=== PATIENT | female | born 1965 | race Caucasian/White ===

== ENCOUNTER 2017-09-20 17:30 | Emergency (ER) | payer MEDICARE, OTHER ==
--- NOTE | 2017-09-20 18:43 | XRAY Report ---
Procedure Date: 09/20/2017 Accession Number: [id number] / [id number] Procedure: XR - Knee 4 View LT CPT Code: FULL RESULT: EXAM: LEFT KNEE RADIOGRAPHY EXAM DATE: 09/20/2017 06:15 PM. CLINICAL HISTORY: Trauma. Pain. Unable to bear weight. COMPARISON: None. TECHNIQUE: 4 views. FINDINGS: Bones: Normal. No fractures or bone lesions. Joints: Normal. No effusion. No subluxations. Soft Tissues: Normal. No soft tissue swelling. IMPRESSION: Normal knee radiography. [facility]
[2017-09-20] MEDS ORDERED: HYDROcod/ACETAM 5/325 MG TABLET PO STA (18:56)
--- NOTE | 2017-09-20 19:00 | ED Physician Documentation ---
PD HPI LOWER EXT INJURY - Stated complaint Stated Complaint: GLF/LT KNEE POP - Chief complaint Chief Complaint: Ext Problem - History obtained from History obtained from: Patient - History of Present Illness PD HPI LOW EXT INJURY LOCATION: Left, Knee Where injury occurred: Home Timing - onset: Yesterday Timing - duration: Days (1) Timing - details: Abrupt onset Pain level max: 8 Pain level now: 7 Improved by: Rest, Ice, Immobilization Worsened by: Moving, Palpating Associated symptoms: No: Weakness, Numbness, Tingling, Swelling Contributing factors: No: Anticoagulated, Prior ortho surgery Similar symptoms before: Has not had sx before Recently seen: Not recently seen - Additional information Additional information: Patient is a 51-year-old female presents to the emergency department left knee pain. She states she was standing when she felt a pop in the posterior aspect of her knee and then she fell to the ground. This was yesterday and states the pain has steadily increased. Ambulated into the emergency department using a cane. Review of Systems Musculoskeletal: denies: Neck pain, Back pain Neurologic: denies: Focal weakness, Numbness PD PAST MEDICAL HISTORY - Past Medical History Past Medical History: Yes Respiratory: Asthma Endocrine/Autoimmune: HyPOthyroidism GI: Other Psych: Bipolar disorder Musculoskeletal: Fibromyalgia Other Past Medical History: IBS - Past Surgical History Past Surgical History: Yes General: Cholecystectomy, Appendectomy, Bowel surgery /[employer]HO[employer]: section, Hysterectomy - Present Medications Home Medications: Ambulatory Orders Medication Instructions Recorded Confirmed Estrogens, Conjugated [Premarin] 1.25 mg PO 09/20/17 Guanfacine HCl 1 mg PO 09/20/17 Haloperidol [Haldol] 0.5 mg PO BID 09/20/17 09/20/17 Hydrocodone/Acetaminophen 1 - 2 each PO Q6H PRN #14 tablet 09/20/17 [Hydrocodon-Acetaminophen 5-325] Lamotrigine [Lamotrigine ER] 200 mg PO BID 09/20/17 09/20/17 Levothyroxine Sodium [Synthroid] 50 mcg PO 09/20/17 Losartan [Cozaar] 50 mg PO DAILY 09/20/17 09/20/17 Pantoprazole [Protonix] 40 mg 09/20/17 diazePAM [Valium] 5 - 10 mg PO TID PRN 09/20/17 09/20/17 - Allergies Allergies/Adverse Reactions: Allergies Allergy/AdvReac Type Severity Reaction Status Date / Time aspirin Allergy Dizziness Verified 09/20/17 17:49 codeine Allergy Hallucinati Verified 09/20/17 18:35 ons hydromorphone [From Dilaudid] Allergy Respiratory Verified 09/20/17 18:35 iodine AdvReac Rash Verified 09/20/17 18:35 Latex, Natural Rubber AdvReac Rash Verified 09/20/17 18:35 - Social History Does the pt smoke?: No Smoking Status: Never smoker Does the pt drink ETOH?: No Does the pt have substance abuse?: No - Immunizations Immunizations are current?: Yes PD ED PE NORMAL - Vitals Vital signs reviewed: Yes - General General: Alert and oriented X 3, No acute distress - HEENT HEENT: Moist mucous membranes - Neck Neck: Supple, no meningeal sign - Derm Derm: Warm and dry - Extremities Extremities: Other (Left knee - ACL, PCL, MCL are intact. There may be slight laxity to the LCL. Also has diffuse tenderness about the knee. Mild swelling. No significant joint effusion. Neurovascularly intact) - Neuro Neuro: Alert and oriented X 3 - Psych Psych: Normal mood, Normal affect Results - Vitals Vitals: Vital Signs - 24 hr 09/20/17 09/20/17 17:47 19:31 Temperature 36.2 C L 36.6 C Heart Rate 59 L 77 Respiratory 16 18 Rate Blood Pressure 125/64 134/73 H O2 Saturation 97 97 Oxygen O2 Source Room air - Rads (name of study) L knee xray Radiology: Prelim report reviewed, EMP read contemporaneously, See rad report ( normal) PD MEDICAL DECISION MAKING - ED course Complexity details: reviewed results, re-evaluated patient, considered differential, d/w patient ED course: Patient is a 51-year-old female with a left knee sprain. Placed in an articulating knee brace and given crutches. Ambulating well with this. We will have her follow-up with her doctor for further evaluation and care. Patient counseled regarding signs and symptoms for which I believe and urgent re -evaluation would be necessary. Patient with good understanding of and agreement to plan and is comfortable going home at this time This document was made in part using voice recognition software. While efforts are made to proofread this document, sound alike and grammatical errors may occur. - Sepsis Event Vital Signs: Vital Signs - 24 hr 09/20/17 09/20/17 17:47 19:31 Temperature 36.2 C L 36.6 C Heart Rate 59 L 77 Respiratory 16 18 Rate Blood Pressure 125/64 134/73 H O2 Saturation 97 97 Oxygen O2 Source Room air Departure - Departure Disposition: 01 Home, Self Care Clinical Impression: Knee sprain Qualifiers: Encounter type: initial encounter Involved ligament of knee: unspecified ligament Laterality: left Qualified Code(s): S83.92XA - Sprain of unspecified site of left knee, initial encounter Condition: Good Instructions: ED Sprain Knee Follow-Up: Irving Ferguson MD [Primary Care Provider] - Within 1 week Prescriptions: Hydrocodone/Acetaminophen [Hydrocodon-Acetaminophen 5-325] 1 - 2 each PO Q6H PRN #14 tablet PRN Reason: pain Comments: Return if you worsen. Wear the brace for the next week until you see your doctor. At that point you will need a repeat evaluation of your knee as the swelling and pain will have decreased. Do not drink alcohol or drive while on narcotic pain medicine. Note that many narcotic pain relievers also contain tylenol/acetaminophen. Please ensure that your total dose of acetaminophen from all sources does not exceed 3 grams (3000mg) per day. You may constipated on this medication, take a stool softener such as "Colace" twice a day while you are on it. Also recommend a jnzv-vwc-nohqwgs laxative such as senna or MiraLAX any day that you do not have a bowel movement. If you received narcotic pain medication in the emergency department, do not drive or operate machinery for the next 24 hours. Discharge Date/Time: 09/20/17 19:49
[2017-09-20 19:32] VITALS: BP 134/73
== END 2017-09-20 19:49 | disposition home or self-care (01) ==
LOC: ED 17:30
DX: S83.92XA Sprain of unspecified site of left knee, initial encounter (principal)
CPT/HCPCS: 73564; 99283; A9270

== ENCOUNTER 2017-10-21 14:30 | Outpatient (CLI) | payer MEDICARE, OTHER ==
--- NOTE | 2017-10-22 09:51 | MRI Report ---
Procedure Date: 10/21/2017 Accession Number: [id number] / [id number] Procedure: MRI - Knee LT W/O CPT Code: FULL RESULT: EXAM: LEFT KNEE MRI WITHOUT CONTRAST EXAM DATE: 10/21/2017 03:49 PM. CLINICAL HISTORY: Chronic left knee pain and throbbing. COMPARISON: Knee 4-view left 09/20/2017. TECHNIQUE: Multiplanar, multisequence T1-weighted and fluid-sensitive sequences of the knee without contrast. Other: None. FINDINGS: Bones and articular cartilage: Patchy marrow edema at the medial tibial plateau and median aspect of the tibial plateau. There is a questionable 1 x 0.8 cm curvilinear hypointense subcortical focus at the medial tibial plateau. No bone lesions. Slight lateral subluxation of the patella by approximately 3 mm. Slight lateral patellar tilt. Patella david is present. The lateral trochlear inclination angle is approximately 7 degrees, which is below normal. Minimal subcortical marrow edema at the anteromedial aspect of the medial femoral condyle. Grade 2 chondromalacia at the medial femoral condyle and medial tibial plateau. Small partial-thickness articular cartilage fissures at the inferior aspect of the lateral patellar facet. Medial Meniscus: There is an extensive vertically-oriented radial tear extending from the free edge to the periphery at the lateral aspect of the posterior horn. The medial meniscal body is partially extruded medially from the medial joint compartment. Lateral Meniscus: The lateral meniscus is intact. Cruciate Ligaments: The anterior and posterior cruciate ligaments are intact. Collateral Ligaments: The medial collateral and lateral collateral ligamentous structures are intact. Tendons: There is distal semimembranosus tendinosis. The quadriceps, patellar, and popliteus tendons are unremarkable. Musculature: No edema or fatty atrophy. Other: Small to moderate-sized joint effusion. No popliteal cyst. No loose bodies. The medial and lateral retinacula are intact. Edema within the deep subcutaneous fat at the anteromedial aspect of the knee. IMPRESSION: 1. Patchy marrow edema at the medial tibial plateau and median aspect of the tibial plateau which may represent bone contusion or stress reaction. There is a questionable 1 x 0.8 cm curvilinear hypointense subcortical focus at the medial tibial plateau which may represent a nondisplaced, possibly insufficiency-type, fracture. 2. Slight lateral patellar subluxation and slight lateral patellar tilt. Patella david also present. The lateral trochlear inclination angle is decreased, suggestive of mild trochlear dysplasia. 3. Chondromalacia at the medial compartment. Partial-thickness articular cartilage fissures at the lateral patellar facet. 4. Extensive, vertically-oriented radial tear at the lateral aspect of the posterior horn medial meniscus. 5. Distal semimembranosus tendinosis. 6. Small to moderate-sized joint effusion. 7. Edema within the deep subcutaneous fat at the anteromedial aspect of the knee which may be inflammatory or posttraumatic. [facility] MUSCULOSKELETAL RADIOLOGY SECTION
== END 2017-10-21 14:31 | disposition home or self-care (01) ==
LOC: DI 14:30
PROVIDERS: ATTEND Orthopaedic Surgery
DX: M17.0 Bilateral primary osteoarthritis of knee (principal); S83.242A Other tear of medial meniscus, current injury, left knee, initial encounter; M94.262 Chondromalacia, left knee; M67.962 Unspecified disorder of synovium and tendon, left lower leg; M25.462 Effusion, left knee

== ENCOUNTER 2018-08-16 15:43 | Outpatient (CLI) | payer MEDICARE, OTHER ==
--- NOTE | 2018-08-20 08:24 | Mammography Report ---
Reason: SCREENING MAMMO Procedure Date: 08/16/2018 Accession Number: [id number] / [id number] Procedure: [facility] - Screening Mammo w/[facility] CPT Code: FULL RESULT: EXAM: Screening Mammo w/[facility] DATE: 08/16/2018 4:41 PM CLINICAL HISTORY: Screening encounter. No reported risk factors. TECHNIQUE: (B) - Bilateral CC and MLO views were obtained. Patient positioning was limited as target compression levels could not be applied. COMPARISON: None PARENCHYMAL PATTERN: (D) - The breast(s) demonstrate(s) heterogeneously dense fibroglandular parenchyma. FINDINGS: In the right breast approximately 10 cm from the nipple laterally is a well-circumscribed isodense nodule measuring 0.7 cm which possibly represents a lymph node. In absence of a prior comparison, additional imaging by ultrasound is needed for confirmation. Laterally in the left breast approximately 9.5 cm from the nipple is a 0.8 cm isodense well-circumscribed nodule which possibly represents a lymph node but requires additional imaging by ultrasound for characterization in absence of a prior comparison. IMPRESSION: Incomplete examination. BI-RADS category 0. RECOMMENDATION: (ADDUS) - Targeted ultrasound recommended. BI-RADS CATEGORY: (0) - Incomplete Examination - need additional evaluation. STANDARD QUALIFYING STATEMENTS: 1. This examination was not reviewed with the aid of Computer-Aided Detection (CAD). 2. A negative or benign imaging report should not preclude biopsy if clinically suspicious findings are present. 3. Dense breasts may obscure an underlying neoplasm. 4. This examination was reviewed with the aid of 3D breast imaging (tomosynthesis).
== END 2018-08-16 15:44 | disposition home or self-care (01) ==
LOC: DI 15:43
PROVIDERS: ATTEND Family Medicine
DX: Z12.31 Encounter for screening mammogram for malignant neoplasm of breast (principal); R92.8 Other abnormal and inconclusive findings on diagnostic imaging of breast
CPT/HCPCS: 77063; 77067

== ENCOUNTER 2018-08-27 12:17 | Outpatient (CLI) | payer MEDICARE, OTHER ==
--- NOTE | 2018-08-27 13:20 | Ultrasound Report ---
Reason: ABNORMAL MAMMOGRAM Procedure Date: 08/27/2018 Accession Number: [id number] / [id number] Procedure: US - Breast Unilateral Limited CPT Code: FULL RESULT: EXAM: Breast Unilateral Limited, Breast Unilateral Limited DATE: 08/27/2018 12:50 PM CLINICAL HISTORY: Bilateral small indeterminate nodules on recent screening mammogram. TECHNIQUE: Bilateral targeted breast ultrasound was performed over the areas of mammographic interest. COMPARISON: Mammogram 08/16/2018 FINDINGS: There is a definite benign intramammary lymph node in the 9:00 position right breast measuring 7 x 4 x 7 mm diameter. There is a definite benign intramammary lymph node in the 3:00 position left breast measuring 9 x 5 x 8 mm diameter. Both nodes have benign morphology and there is concordance with the mammographic finding. No further workup required. IMPRESSION: CATEGORY 1: NORMAL. RECOMMENDATIONS: Annual screening mammography.
--- NOTE | 2018-08-27 13:20 | Ultrasound Report ---
Reason: ABNORMAL MAMMOGRAM Procedure Date: 08/27/2018 Accession Number: [id number] / [id number] Procedure: US - Breast Unilateral Limited CPT Code: FULL RESULT: EXAM: Breast Unilateral Limited, Breast Unilateral Limited DATE: 08/27/2018 12:50 PM CLINICAL HISTORY: Bilateral small indeterminate nodules on recent screening mammogram. TECHNIQUE: Bilateral targeted breast ultrasound was performed over the areas of mammographic interest. COMPARISON: Mammogram 08/16/2018 FINDINGS: There is a definite benign intramammary lymph node in the 9:00 position right breast measuring 7 x 4 x 7 mm diameter. There is a definite benign intramammary lymph node in the 3:00 position left breast measuring 9 x 5 x 8 mm diameter. Both nodes have benign morphology and there is concordance with the mammographic finding. No further workup required. IMPRESSION: CATEGORY 1: NORMAL. RECOMMENDATIONS: Annual screening mammography.
== END 2018-08-27 12:18 | disposition home or self-care (01) ==
LOC: DI 12:17
PROVIDERS: ATTEND Family Medicine
DX: R92.8 Other abnormal and inconclusive findings on diagnostic imaging of breast (principal)
CPT/HCPCS: 76642

== ENCOUNTER 2019-05-16 11:44 | Outpatient (CLI) | payer MEDICARE, OTHER ==
--- NOTE | 2019-05-16 16:54 | XRAY Report ---
Reason: NECK PAIN,UPPER THORACIC PAIN Procedure Date: 05/16/2019 Accession Number: [id number] / [id number] Procedure: XR - Thoracic Spine 2 View CPT Code: Final Report FULL RESULT: EXAM: THORACIC SPINE RADIOGRAPHY EXAM DATE: 05/16/2019 12:13 PM. CLINICAL HISTORY: NECK PAIN, UPPER THORACIC PAIN. COMPARISON: CERVICAL SPINE 2 VIEW 05/16/2019 11:57 AM. TECHNIQUE: 3 views. FINDINGS: Alignment: Normal. No spondylolisthesis or scoliosis. Bones: No fractures or bone lesions. Disks: Minimal flowing osteophyte formation right anterolaterally in the mid thoracic spine consistent with diffuse idiopathic skeletal hyperostosis. Disk heights are maintained. Soft Tissues: Normal. The visualized lungs and cardiomediastinal silhouette are normal. IMPRESSION: Normal thoracic spine radiography. [facility]
--- NOTE | 2019-05-16 16:56 | XRAY Report ---
Reason: [id number] Procedure Date: 05/16/2019 Accession Number: [id number] / [id number] Procedure: XR - Cervical Spine 2 View CPT Code: Final Report FULL RESULT: EXAM: CERVICAL SPINE RADIOGRAPHY EXAM DATE: 05/16/2019 12:13 PM. CLINICAL HISTORY: Ground-level fall in February. Pain and numbness in both arms. Headache. COMPARISONS: THORACIC SPINE 2 VIEW 05/16/2019 11:57 AM. TECHNIQUE: 3 views. FINDINGS: Alignment: Normal. No spondylolisthesis or scoliosis. Bones: The cervical vertebral bodies and posterior elements are well visualized from the skull base through C7-T1. No fractures or bone lesions. Disks: Disk height loss and endplate osteophyte formation indicating degenerative disk disease which is mild at C5-C6 and moderate at C6-C7. Facets: Moderate right C4-C5 facet osteoarthritis. Soft Tissues: Normal. No prevertebral soft tissue swelling. The visualized lung apices are clear. IMPRESSION: 1. No fracture or subluxation. 2. Mild C5-C6 and moderate C6-C7 degenerative disk disease. 3. Moderate right C4-C5 facet osteoarthritis. [facility]
== END 2019-05-16 11:45 | disposition home or self-care (01) ==
LOC: DI 11:44
PROVIDERS: ATTEND Physician Assistant Medical
DX: M50.322 Other cervical disc degeneration at C5-C6 level (principal); M47.812 Spondylosis without myelopathy or radiculopathy, cervical region
CPT/HCPCS: 72040; 72070

== ENCOUNTER 2019-07-11 16:59 | Outpatient (CLI) | payer MEDICARE, OTHER | END 2019-07-11 17:00 | disposition home or self-care (01) | LOC: COV 16:59 | PROVIDERS: ATTEND Family Medicine | DX: R05 Cough (principal); R06.02 Shortness of breath; M79.10 Myalgia, unspecified site; R68.83 Chills (without fever) | CPT/HCPCS: 81599 ==

== ENCOUNTER 2019-09-30 16:26 | Outpatient (CLI) | payer MEDICARE, OTHER | END 2019-09-30 16:27 | disposition critical access hospital (66) | LOC: EMS 16:26 | PROVIDERS: ATTEND Surgery | DX: R45.89 Other symptoms and signs involving emotional state (principal) | CPT/HCPCS: A0425; A0429 ==

== ENCOUNTER 2019-09-30 16:44 | Emergency (ER) | payer MEDICARE, OTHER ==
[2019-09-30 17:22] LABS: BASOPHILS # (AUTO) 0.1 10^3/uL (0.0-0.1); BASOPHILS % (AUTO) 0.7 %; EOSINOPHILS # (AUTO) 0.4 10^3/uL (0.0-0.7); EOSINOPHILS % (AUTO) 4.8 %; HGB - HEMOGLOBIN 13.5 g/dL (12.0-16.0); LYMPHOCYTES # (AUTO) 2.3 10^3/uL (1.5-3.5); LYMPHOCYTES % (AUTO) 27.6 %; MEAN CORPUSCULAR HEMOGLOBIN 29.6 pg (27.0-31.0); MEAN CORPUSCULAR HGB CONC 32.8 g/dL (32.0-36.0); MEAN CORPUSCULAR VOLUME 90.1 fL (81.0-99.0); MEAN PLATELET VOLUME 9.2 fL (7.9-10.8); MONOCYTES # (AUTO) 0.9 10^3/uL (0.0-1.0); MONOCYTES % (AUTO) 10.4 %; NEUTROPHILS # (AUTO) 4.6 10^3/uL (1.5-6.6); NEUTROPHILS % (AUTO) 56.1 %; PLT - PLATELET COUNT 376 10^3/uL (130-450); RED BLOOD COUNT 4.56 10^6/uL (4.20-5.40); RED CELL DISTRIBUTION WIDTH 14.3 % (12.0-15.0); WHITE BLOOD COUNT 8.2 x10^3/uL (4.8-10.8)
[2019-09-30 17:29] LABS: MUDS CUTOFF CONCENTRATIONS CUTOFF CONC BELOW:
[2019-09-30 17:31] LABS: BILIRUBIN,URINE NEGATIVE (NEGATIVE); GLUCOSE, URINE (UA) NEGATIVE (NEGATIVE); KETONES,URINE (UA) NEGATIVE (NEGATIVE); LEUKOCYTE ESTERASE, URINE NEGATIVE (NEGATIVE); NITRITE,URINE NEGATIVE (NEGATIVE); OCCULT BLOOD,URINE TRACE-INTA (NEGATIVE); PROTEIN,URINE NEGATIVE (NEGATIVE); UROBILINOGEN,URINE 0.2 (NORMAL) E.U./dL (NORMAL)
[2019-09-30 17:34] LABS: ACETAMINOPHEN < 10 ug/mL (10-30); ALBUMIN 3.9 g/dL (3.2-5.5); ALKALINE PHOSPHATASE 70 IU/L (42-121); ALT ALANINE AMINOTRANSFERASE 18 IU/L (10-60); AST ASPARTATE AMINOTRANSFERASE 25 IU/L (10-42); BILIRUBIN,TOTAL 0.5 mg/dL (0.2-1.0); BUN - BLOOD UREA NITROGEN 14 mg/dL (6-20); CALCIUM 9.3 mg/dL (8.5-10.3); CARBON DIOXIDE - CO2 24 mmol/L (21-32); CHLORIDE 100 mmol/L (101-111); CREATININE 0.9 mg/dL (0.4-1.0); GLUCOSE 139 mg/dL (70-100); LIPASE 39 U/L (22-51); SALICYLATE < 6.0 mg/dL; SODIUM 136 mmol/L (135-145); TOTAL PROTEIN 7.8 g/dL (6.7-8.2)
[2019-09-30 17:45] LABS: AMPHETAMINE SCREEN,URINE NEGATIVE (NEGATIVE); BENZODIAZEPINES SCREEN, URINE POSITIVE (NEGATIVE); CLARITY,URINE CLEAR (CLEAR); COCAINE SCREEN URINE NEGATIVE (NEGATIVE); METHADONE SCREEN, URINE NEGATIVE (NEGATIVE); METHAMPHETAMINES SCREEN, URINE NEGATIVE (NEGATIVE); OPIATE SCREEN, URINE NEGATIVE (NEGATIVE); OXYCODONE SCREEN, URINE NEGATIVE (NEGATIVE); PROPOXYPHENE SCREEN, URINE NEGATIVE (NEGATIVE); TRICYCLIC ANTIDEPRESSANT,URINE NEGATIVE (NEGATIVE)
--- NOTE | 2019-09-30 18:08 | ED Physician Documentation ---
PD HPI MHE - Stated complaint Stated Complaint: MHE - Chief complaint Chief Complaint: MHE - History obtained from History obtained from: Patient, Family - History of Present Illness Primary symptom: Anxiety Timing - onset: Chronic Pain level max: 0 Pain level now: 0 - Additional information Additional information: Patient states that she feels overwhelmed at home, she states that she feels like her brain is made of "broken glass". She states she does not feel suicidal, but no longer cares if she lives or dies. She has a psychiatrist and [facility]. Nothing makes it better or worse. She states that they did increase 1 of her medications 2 days ago. She is here with her boss alonzo. She states that she does not know if she needs inpatient care or not. She states she does not want to make that decision. Review of Systems Ten Systems: 10 systems reviewed and negative Constitutional: denies: Fever, Chills Ears: denies: Ear pain Nose: denies: Rhinorrhea / runny nose, Congestion Cardiac: denies: Chest pain / pressure Respiratory: denies: Dyspnea, Cough GI: denies: Nausea, Vomiting, Diarrhea Skin: denies: Rash Musculoskeletal: denies: Neck pain, Back pain Neurologic: denies: Headache PD PAST MEDICAL HISTORY - Past Medical History Past Medical History: Yes Cardiovascular: Hypertension Respiratory: Asthma Neuro: Migraines Endocrine/Autoimmune: HyPOthyroidism GI: GERD, Chronic diarrhea, Other : None Psych: Depression, Anxiety, Bipolar disorder, Panic attacks Musculoskeletal: Fibromyalgia - Past Surgical History Past Surgical History: Yes General: Cholecystectomy, Appendectomy, Bowel surgery /RN SECURITY: section, Hysterectomy - Present Medications Home Medications: Ambulatory Orders Medication Instructions Recorded Confirmed Estrogens, Conjugated [Premarin] 1.25 mg PO 09/20/17 Guanfacine HCl 1 mg PO 09/20/17 Hydrocodone/Acetaminophen 1 - 2 each PO Q6H PRN #14 tablet 09/20/17 [Hydrocodon-Acetaminophen 5-325] Lamotrigine [Lamotrigine ER] 200 mg PO BID 09/20/17 09/20/17 Levothyroxine Sodium [Synthroid] 50 mcg PO 09/20/17 Losartan [Cozaar] 50 mg PO DAILY 09/20/17 09/20/17 Pantoprazole [Protonix] 40 mg 09/20/17 diazePAM [Valium] 5 - 10 mg PO TID PRN 09/20/17 09/20/17 haloperidoL [Haldol] 0.5 mg PO BID 09/20/17 09/20/17 - Allergies Allergies/Adverse Reactions: Allergies Allergy/AdvReac Type Severity Reaction Status Date / Time aspirin Allergy Dizziness Verified 09/20/17 17:49 codeine Allergy Hallucinati Verified 09/20/17 18:35 ons hydromorphone [From Dilaudid] Allergy Respiratory Verified 09/20/17 18:35 Penicillins Allergy Nausea Verified 09/30/19 16:50 iodine AdvReac Rash Verified 09/20/17 18:35 Latex, Natural Rubber AdvReac Rash Verified 09/20/17 18:35 - Social History Does the pt smoke?: No Smoking Status: Former smoker Does the pt drink ETOH?: No Does the pt have substance abuse?: No - Immunizations Immunizations are current?: Yes PD ED PE NORMAL - Vitals Vital signs reviewed: Yes - General General: Alert and oriented X 3, No acute distress, Well developed/nourished - HEENT HEENT: PERRL, Moist mucous membranes - Neck Neck: Supple, no meningeal sign - Cardiac Cardiac: RRR - Respiratory Respiratory: No respiratory distress, Clear bilaterally - Abdomen Abdomen: Soft, Non tender, Non distended - Derm Derm: Warm and dry - Extremities Extremities: No calf tenderness / cord - Neuro Neuro: Alert and oriented X 3 - Psych Psych: Other (Tearful at times, easily frustrated) Results - Vitals Vitals: Vital Signs - 24 hr 09/30/19 09/30/19 16:50 16:53 Temperature 36.8 C Heart Rate 95 51 L Respiratory 16 23 Rate Blood Pressure 148/101 H 115/73 O2 Saturation 96 100 Oxygen O2 Source Room air - EKG (time done) 1757 Rate: Rate (enter#) (86) Rhythm: NSR [place]: Normal Intervals: Normal [place] QRS: Normal Ischemia: Normal ST segments - Labs Labs: Laboratory Tests 09/30/19 09/30/19 09/30/19 17:15 17:15 17:15 WBC 8.2 RBC 4.56 Hgb 13.5 Hct 41.1 MCV 90.1 MCH 29.6 MCHC 32.8 RDW 14.3 Plt Count 376 MPV 9.2 Neut # (Auto) 4.6 Lymph # (Auto) 2.3 Hinds # (Auto) 0.9 Eos # (Auto) 0.4 Baso # (Auto) 0.1 Absolute Nucleated RBC 0.00 Nucleated RBC % 0.0 Sodium 136 Potassium 3.7 Chloride 100 L Carbon Dioxide 24 Anion Gap 12.0 BUN 14 Creatinine 0.9 Estimated GFR (MDRD) 65 L Glucose 139 H Calcium 9.3 Total Bilirubin 0.5 AST 25 ALT 18 Alkaline Phosphatase 70 Total Protein 7.8 Albumin 3.9 Globulin 3.9 Albumin/Globulin Ratio 1.0 Lipase 39 TSH 0.89 Urine Color Urine Clarity Urine pH Ur Specific [place] Urine Protein Urine Glucose (UA) Urine Ketones Urine Occult Blood Urine Nitrite Urine Bilirubin Urine Urobilinogen Ur Leukocyte Esterase Ur Microscopic Review Urine Culture Comments Salicylates < 6.0 Urine Opiates Screen Ur Oxycodone Screen Urine Methadone Screen Ur Propoxyphene Screen Acetaminophen < 10 L Ur Barbiturates Screen Ur Tricyclics Screen Ur Phencyclidine Scrn Ur Amphetamine Screen U Methamphetamines Scrn U Benzodiazepines Scrn Urine Cocaine Screen U Cannabinoids Screen Ethyl Alcohol < 5.0 09/30/19 17:20 WBC RBC Hgb Hct MCV MCH MCHC RDW Plt Count MPV Neut # (Auto) Lymph # (Auto) [place] # (Auto) Eos # (Auto) Baso # (Auto) Absolute Nucleated RBC Nucleated RBC % Sodium Potassium Chloride Carbon Dioxide Anion Gap BUN Creatinine Estimated GFR (MDRD) Glucose Calcium Total Bilirubin AST ALT Alkaline Phosphatase Total Protein Albumin Globulin Albumin/Globulin Ratio Lipase TSH Urine Color YELLOW Urine Clarity CLEAR Urine pH 6.0 Ur Specific [place] 1.020 Urine Protein NEGATIVE Urine Glucose (UA) NEGATIVE Urine Ketones NEGATIVE Urine Occult Blood TRACE-INTA Urine Nitrite NEGATIVE Urine Bilirubin NEGATIVE Urine Urobilinogen 0.2 (NORMAL) Ur Leukocyte Esterase NEGATIVE Ur Microscopic Review NOT INDICATED Urine Culture Comments NOT INDICATED Salicylates Urine Opiates Screen NEGATIVE Ur Oxycodone Screen NEGATIVE Urine Methadone Screen NEGATIVE Ur Propoxyphene Screen NEGATIVE Acetaminophen Ur Barbiturates Screen POSITIVE H Ur Tricyclics Screen NEGATIVE Ur Phencyclidine Scrn NEGATIVE Ur Amphetamine Screen NEGATIVE U Methamphetamines Scrn NEGATIVE U Benzodiazepines Scrn POSITIVE H Urine Cocaine Screen NEGATIVE U Cannabinoids Screen NEGATIVE Ethyl Alcohol PD MEDICAL DECISION MAKING - ED course Complexity details: reviewed results, re-evaluated patient, considered differential, d/w patient ED course: 53-year-old female presents to the emergency department with what appears to be decompensation of her bipolar disorder. She appears to be mostly on the depressive end of the scale today. She has passive suicidal thoughts. She currently is living alone, roommate will not be back for several months. She feels hopeless and worthless. She apparently is going through a divorce as well. Tele-psychiatry was consulted and they recommend continuing her current medications and voluntary placement for psychiatric care. Patient is agreeable to this at this time. Patient will be signed out to the oncoming emergency department physician for further care. This document was made in part using voice recognition software. While efforts are made to proofread this document, sound alike and grammatical errors may occur. Departure - Departure Clinical Impression: Bipolar disorder Qualifiers: Active/Remission status: currently active Current bipolar episode type: depressed Current episode severity: severe Psychotic features: with psychotic features Qualified Code(s): F31.5 - Bipolar disorder, current episode depressed, severe, with psychotic features Condition: Stable
[2019-09-30] MEDS ORDERED: ACETAMINOPHEN 325 MG TABLET PO STA (20:19)
[2019-09-30] MEDS ORDERED: diazePAM 5 MG TABLET PO STA (20:21)
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
[2019-10-01] MEDS ORDERED: ACETAMINOPHEN 325 MG TABLET PO STA (04:56)
[2019-10-01 06:47] VITALS: BP 118/72
== END 2019-10-01 08:53 ==
LOC: EDUNIT# → ED 16:44
DX: F31.5 Bipolar disorder, current episode depressed, severe, with psychotic features (principal); F41.9 Anxiety disorder, unspecified; R45.851 Suicidal ideations; I10 Essential (primary) hypertension; Z87.891 Personal history of nicotine dependence; Z11.59 Encounter for screening for other viral diseases
CPT/HCPCS: 36415; 80053; 81003; 83690; 84443; 85025; 93005; 99285; A9270; G0425; U0004; 80306; 80307; 80320; 80329; 81001; 87086

== ENCOUNTER 2019-10-14 14:40 | Outpatient (CLI) | payer MEDICARE, OTHER | END 2019-10-14 14:41 | disposition home or self-care (01) | LOC: COV 14:40 | PROVIDERS: ATTEND Family Medicine | DX: R06.02 Shortness of breath (principal); J02.9 Acute pharyngitis, unspecified; Z20.828 Contact with and (suspected) exposure to other viral communicable diseases ==

== ENCOUNTER 2020-02-03 14:51 | Outpatient (CLI) | payer MEDICARE, OTHER ==
[2020-02-03] MEDS ORDERED: IOVERSOL 320 50 ML VIAL ONE (15:05)
[2020-02-03 15:16] LABS: CREATININE 0.7 mg/dL (0.4-1.0)
[2020-02-03] MEDS ORDERED: IOVERSOL 320 100 ML VIAL IVP ONE ×2 (15:19→16:36)
[2020-02-03] MEDS ORDERED: IOVERSOL 320 50 ML VIAL PO ONE (16:37)
--- NOTE | 2020-02-03 16:52 | CT Report ---
PROCEDURE: Abdomen/Pelvis W INDICATIONS: CHRONIC DIARRHEA, NAUSEA CONTRAST: IV CONTRAST: Optiray 320 ml: 100 PO CONTRAST: Optiray 320 ml50 TECHNIQUE: After the administration of contrast, 5 mm thick sections acquired from the diaphragms to the sym physis. 5 mm thick coronal and sagittal reformats were acquired. For radiation dose reduction, the following was used: automated exposure control, adjustment of mA and/or kV according to patient size . COMPARISON: None. FINDINGS: Image quality: Excellent. ABDOMEN: Lung bases: Lung bases are clear. Heart size is normal. Solid organs: Liver is enlarged and demonstrates diffusely decreased density, without focal mass. Sp paula is within normal limits. Gallbladder is surgically absent Biliary system is non dilated. Pancr eas enhances normally. No adrenal nodules. Kidneys demonstrate normal size and enhancement, without hydronephrosis. Peritoneum and bowel: Bowel loops demonstrate normal wall thickness and caliber. Appendix is not see n. There are presumed appendectomy clips. No free fluid or air. Nodes and vessels: No retroperitoneal or mesenteric adenopathy by size criteria. Aorta and inferior vena cava are normal in size. Moderate calcific plaque at the aortic bifurcation. Miscellaneous: No ventral hernias. PELVIS: Genitourinary: Bladder wall thickness is normal. Miscellaneous: No inguinal hernias or adenopathy. Bones: No suspicious bony lesions. No vertebral body compression fractures. IMPRESSION: 1. No acute process. 2. Hepatic steatosis. 3. Moderate atherosclerosis, greater than expected for age. Reviewed by: Octavio Vigil MD on 02/03/2020 3:51 PM AKST Approved by: Octavio Vigil MD on 02/03/2020 3:51 PM AKST Station ID: [id number]
== END 2020-02-03 14:52 | disposition home or self-care (01) ==
LOC: LAB 14:51
PROVIDERS: ATTEND Family Medicine
DX: R11.0 Nausea (principal); K52.9 Noninfective gastroenteritis and colitis, unspecified; K76.0 Fatty (change of) liver, not elsewhere classified; I70.0 Atherosclerosis of aorta
CPT/HCPCS: 36415; 74177; 82565; Q9967

== ENCOUNTER 2020-02-23 19:35 | Outpatient (CLI) | payer MEDICARE, OTHER | END 2020-02-23 19:36 | disposition home or self-care (01) | LOC: COV 19:35 | PROVIDERS: ATTEND Family Medicine | DX: R05 Cough (principal); R06.02 Shortness of breath; M79.10 Myalgia, unspecified site; R53.83 Other fatigue; R07.0 Pain in throat; R19.7 Diarrhea, unspecified; R11.2 Nausea with vomiting, unspecified; Z20.828 Contact with and (suspected) exposure to other viral communicable diseases ==